=== PATIENT | male | born 1970 | race Caucasian/White ===

== ENCOUNTER 2016-05-05 15:32 | Emergency (ER) | payer OTHER ==
--- NOTE | 2016-05-05 16:47 | ED NURSING NOTES ---
Clinical Report - Nurses [facility] [address] [place] [address] 05/05/2016 15:33 Patient: IESHA BENÍTEZ TRIAGE Triage time 15:42 May 05 2016. Acuity: LEVEL 4. Chief Complaint: BOIL. 15:46 05/05/16. Alert. No acute distress. SEPSIS SCREEN: Sepsis Screen. Negative (no infection suspected/documented). ILEANA COMA SCORE: Ileana Coma Scale: 15- eyes open spontaneously (4); best verbal response- oriented x 4 (5); best motor response- obeys commands (6). --15:46 Christine Dasilva 15:46 05/05/16. BP: 126/71. HR: 72. RR: 14. O2 saturation: 98%. Temp: 98.1 F. Pain level now 07/03. --15:46 Christine Dasilva. Weight: 74.8 kg stated. Height/Length: 74 inches Per Patient. BMI: 21.2. --15:45 Christine Dasilva. Medications None. --15:43 Christien Dasilva. Medication/allergy information source: the patient. --15:46 Christine Dasilva. Allergies None. --15:43 Christine Dasilva. History Arrived by private vehicle. Historian: patient. Accompanied by friend. No primary care physician. Reported as located on the right middle finger. This started yesterday. It is described as painful. ( Pt reports he has had a small "dot" in the area for awhile that got worse yesterday. "I couldn't bend my finger."). No fever, muscle aches, headache, cough or difficulty breathing. No itching or weakness. Treatment PHARMACY HELPER: Took ibuprofen. PAST MEDICAL HX: No history of asthma, diabetes mellitus, heart disease or lung disease. Immunizations: up-to-date and has received tetanus within 5 years. SOCIAL HX: Never smoker. No alcohol use or drug use. FALL RISK ASSESSMENT: Fall risk assessment completed. No fall risk identified. NUTRITIONAL RISK ASSESSMENT: The nutritional risk assessment revealed no deficiencies. FUNCTIONAL ASSESSMENT: Functional assessment: no impairments noted. LEARNING NEEDS ASSESSMENT: The learning needs assessment revealed no barriers. SKIN INTEGRITY ASSESSMENT: Skin integrity risk assessment completed. No skin integrity risk identified. --15:46 Christine Dasilva. ADDITIONAL SURGERIES: R leg. --15:43 Christine Dasilva. Interventions ID band on patient. --15:46 Christine Dasilva. PHYSICAL ASSESSMENT 15:46 05/05/16. Ambulatory to room. GENERAL / NEURO / PSYCH: Alert. The patient does not appear to be in acute distress. Oriented X 4. HEENT: Pupils equal, round and reactive to light. RESPIRATORY: Respirations not labored. CVS: Capillary refill less than 2 seconds. Pulses within normal limits. GI / : Abdomen nontender. SKIN: Skin is intact, warm and dry. Normal skin turgor. Skin tenderness present. Swelling present. Erythema present. No drainage. --15:47 Christine Dasilva. NURSING PROGRESS NOTES 15:47 05/05/16. The plan of care for this patient has been created. Reassurance given. Two patient identifiers checked. Call light placed in reach. Bed placed in lowest position. Brakes of bed on. Patient ready for evaluation- chart flagged and ED physician and PA notified. --15:47 Christine Dasilva. DISPOSITION / DISCHARGE 16:54 05/05/16. Departure time: 16:54 May 05 2016. Condition at departure: improved. The goals identified in the patient's plan of care were met. No learning barriers present. Discharge instructions provided and reviewed with the patient. Reviewed warnings (Patient verbalized understanding of importance of taking entire course of Abx.). Reviewed medication(s) side effects, precautions, dosing and course information. Prescription(s) given to the patient (Clindamycin). Treatments reviewed. Reviewed referral to a primary care physician for followup. Patient verbalized understanding. Written instructions provided in Malagasy. The patient was discharged by the physician. He was discharged home and accompanied by parent. He left the Emergency Department ambulatory and via private vehicle. Patient driving. FALL RISK ASSESSMENT: Fall risk assessment completed. No fall risk identified. --16:54 Christine Dasilva 16:52 05/05/16. BP: 112/65. HR: 67. RR: 14. O2 saturation: 99%. Temp: 98.2 F. Pain level now: 07/03. --16:54 Christine Dasilva. Locked/Released at 05/05/2016 16:55 by Christine Dasilva,
--- NOTE | 2016-05-05 16:47 | ED CLINICAL REPORT ---
Clinical Report - Physicians/Mid Levels [facility] [address] [place] [address] 05/05/2016 15:33 Patient: IESHA BENÍTEZ Time Seen: 15:42; initial patient contact. Arrived- By private vehicle. Historian- patient. HISTORY OF PRESENT ILLNESS Chief Complaint: Injury to the right middle finger. The injury happened yesterday. (Unk). Occurred at home. Patient is experiencing mild pain. Patient denies injury to the head or neck. REVIEW OF SYSTEMS The patient has had swelling. No tingling, numbness, weakness, foreign body or skin laceration. All systems otherwise negative, except as recorded above. PAST HISTORY Negative. Problems: no known problems. Medications: None. Allergies: None. SOCIAL HISTORY Never smoker. No alcohol use or drug use. ADDITIONAL NOTES The nursing notes have been reviewed with agreement regarding the chief complaint, PMH and patient medications and allergies. PHYSICAL EXAM Vital Signs: 05/05/2016 15:46 BP: 126/71. HR: 72. RR: 14. O2 saturation: 98%. Temp: 98.1 F. Have been reviewed as normal. Skin: Single small abscess with pointing to right hand. Extremities: Right middle finger: No erythema. PROGRESS AND PROCEDURES Incision & Drainage of Abscess: Per protocol, time-out completed immediately before the procedure. The abscess is located in the right middle finger. The risks of the procedure, benefits and alternatives were explained. Skin cleansed with Shur-Clens. A small amount of pus was drained. Sample obtained for cultures. A dressing was applied. Estimated blood loss: 2 mL. ( 18 ga needle used to incise). Disposition: Discharged home in good and improved condition. Condition: good. CLINICAL IMPRESSION Single superficial abscess to the right upper extremity with incision and drainage. INSTRUCTIONS Protect wound and keep wound area clean. Change dressing twice daily. You may wash wounds briefly, then dry. Soak in warm soapy water twice daily. Prescription Medications: Clindamycin 300 mg: take 1 capsule orally every 8 hours for 7 days. No refill. Follow-up: Screening today revealed the patient's blood pressure to be in the pre-hypertensive range. The patient should follow up with a primary care provider for blood pressure management. Follow-up with: [facility], , , [address], , [place], [id number] Follow up in about three days. Call for an appointment. (Electronically signed by Jorge Foy Dr. 05/05/2016 22:05)
--- NOTE | 2016-05-05 16:47 | ED NURSING NOTES ---
Clinical Report - Nurses [facility] [address] [place] [address] 05/05/2016 15:33 Patient: IESHA BENÍTEZ TRIAGE Triage time 15:42 May 05 2016. Acuity: LEVEL 4. Chief Complaint: BOIL. 15:46 05/05/16. Alert. No acute distress. SEPSIS SCREEN: Sepsis Screen. Negative (no infection suspected/documented). ILEANA COMA SCORE: Ileana Coma Scale: 15- eyes open spontaneously (4); best verbal response- oriented x 4 (5); best motor response- obeys commands (6). --15:46 Christine Dasliva 15:46 05/05/16. BP: 126/71. HR: 72. RR: 14. O2 saturation: 98%. Temp: 98.1 F. Pain level now 07/03. --15:46 Christine Dasilva. Weight: 74.8 kg stated. Height/Length: 74 inches Per Patient. BMI: 21.2. --15:45 Christine Dasilva. Medications None. --15:43 Christine Dasilva. Medication/allergy information source: the patient. --15:46 Christine Dasilva. Allergies None. --15:43 Christine Dasilva. History Arrived by private vehicle. Historian: patient. Accompanied by friend. No primary care physician. Reported as located on the right middle finger. This started yesterday. It is described as painful. ( Pt reports he has had a small "dot" in the area for awhile that got worse yesterday. "I couldn't bend my finger."). No fever, muscle aches, headache, cough or difficulty breathing. No itching or weakness. 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 PAST MEDICAL HX: No history of asthma, diabetes mellitus, heart disease or lung disease. Immunizations: up-to-date and has received tetanus within 5 years. SOCIAL HX: Never smoker. No alcohol use or drug use. FALL RISK ASSESSMENT: Fall risk assessment completed. No fall risk identified. NUTRITIONAL RISK ASSESSMENT: The nutritional risk assessment revealed no deficiencies. FUNCTIONAL ASSESSMENT: Functional assessment: no impairments noted. LEARNING NEEDS ASSESSMENT: The learning needs assessment revealed no barriers. SKIN INTEGRITY ASSESSMENT: Skin integrity risk assessment completed. No skin integrity risk identified. --15:46 Christine Dasilva. ADDITIONAL SURGERIES: R leg. --15:43 Christine Dasilva. Interventions ID band on patient. --15:46 Christine Dasilva. PHYSICAL ASSESSMENT 15:46 05/05/16. Ambulatory to room. GENERAL / NEURO / PSYCH: Alert. The patient does not appear to be in acute distress. Oriented X 4. HEENT: Pupils equal, round and reactive to light. RESPIRATORY: Respirations not labored. CVS: Capillary refill less than 2 seconds. Pulses within normal limits. GI / : Abdomen nontender. SKIN: Skin is intact, warm and dry. Normal skin turgor. Skin tenderness present. Swelling present. Erythema present. No drainage. --15:47 Christine Dasilva. NURSING PROGRESS NOTES 15:47 05/05/16. The plan of care for this patient has been created. Reassurance given. Two patient identifiers checked. Call light placed in reach. Bed placed in lowest position. Brakes of bed on. Patient ready for evaluation- chart flagged and ED physician and PA notified. --15:47 Christine Dasilva. DISPOSITION / DISCHARGE 16:54 05/05/16. Departure time: 16:54 May 05 2016. Condition at departure: improved. The goals identified in the patient's plan of care were met. No learning barriers present. Discharge instructions provided and reviewed with the patient. Reviewed warnings (Patient verbalized understanding of importance of taking entire course of Abx.). Reviewed medication(s) side effects, precautions, dosing and course information. Prescription(s) given to the patient (Clindamycin). Treatments reviewed. Reviewed referral to a primary care physician for followup. Patient verbalized understanding. Written instructions provided in Croatian. The patient was discharged by the physician. He was discharged home and accompanied by parent. He left the Emergency Department ambulatory and via private vehicle. Patient driving. FALL RISK ASSESSMENT: Fall risk assessment completed. No fall risk identified. --16:54 Christine Dasilva 16:52 05/05/16. BP: 112/65. HR: 67. RR: 14. O2 saturation: 99%. Temp: 98.2 F. Pain level now: 07/03. --16:54 Christine Dasilva. Locked/Released at 05/05/2016 16:55 by Christine Dasilva,
--- NOTE | 2016-05-05 16:47 | ED CLINICAL REPORT ---
Clinical Report - Physicians/Mid Levels [facility] [address] [place] [address] 05/05/2016 15:33 Patient: IESHA BENÍTEZ Time Seen: 15:42; initial patient contact. Arrived- By private vehicle. Historian- patient. HISTORY OF PRESENT ILLNESS Chief Complaint: Injury to the right middle finger. The injury happened yesterday. (Unk). Occurred at home. Patient is experiencing mild pain. Patient denies injury to the head or neck. REVIEW OF SYSTEMS The patient has had swelling. No tingling, numbness, weakness, foreign body or skin laceration. All systems otherwise negative, except as recorded above. PAST HISTORY Negative. Problems: no known problems. Medications: None. Allergies: None. SOCIAL HISTORY Never smoker. No alcohol use or drug use. ADDITIONAL NOTES The nursing notes have been reviewed with agreement regarding the chief complaint, PMH and patient medications and allergies. PHYSICAL EXAM Vital Signs: 05/05/2016 15:46 BP: 126/71. HR: 72. RR: 14. O2 saturation: 98%. Temp: 98.1 F. Have been reviewed as normal. Skin: Single small abscess with pointing to right hand. Extremities: Right middle finger: No erythema. PROGRESS AND PROCEDURES Incision & Drainage of Abscess: Per protocol, time-out completed immediately before the procedure. The abscess is located in the right middle finger. The risks of the procedure, benefits and alternatives were explained. Skin cleansed with Shur-Clens. A small amount of pus was drained. Sample obtained for cultures. A dressing was applied. Estimated blood loss: 2 mL. ( 18 ga needle used to incise). Disposition: Discharged home in good and improved condition. Condition: good. CLINICAL IMPRESSION Single superficial abscess to the right upper extremity with incision and drainage. INSTRUCTIONS Protect wound and keep wound area clean. Change dressing twice daily. You may wash wounds briefly, then dry. Soak in warm soapy water twice daily. Prescription Medications: Clindamycin 300 mg: take 1 capsule orally every 8 hours for 7 days. No refill. Follow-up: Screening today revealed the patient's blood pressure to be in the pre-hypertensive range. The patient should follow up with a primary care provider for blood pressure management. Follow-up with: [facility], , , [address], , [place], [id number] Follow up in about three days. Call for an appointment. (Electronically signed by Jorge Foy Dr. 05/05/2016 22:05)
--- NOTE | 2016-05-05 22:05 | ED MAR SUMMARY ---
..... Medication Administration Record [facility] [address] [place] [id number] Patient: IESHA BENÍTEZ Visit ID: [id number] 46y, M Weight: 74.8 kg Height/Length: 74 in BMI: 21.2 ALLERGIES: None
--- NOTE | 2016-05-05 22:05 | ED MAR SUMMARY ---
..... Medication Administration Record [facility] [address] [place] [id number] Patient: IEHSA BENÍTEZ Visit ID: [id number] 46y, M Weight: 74.8 kg Height/Length: 74 in BMI: 21.2 ALLERGIES: None
--- NOTE | 2016-05-05 22:05 | ED MED RECONCILIATION SUMMARY ---
Patient: IESHA BENÍTEZ Medication Reconciliation Report [facility] VisitID: [id number] [address] [place] [address] 46y, M Registration Date/Time: 05/05/2016 Weight: 74.8 kg Height/Length: 74 in. BMI: 21.2 ALLERGIES: None The patient's Home Medications are listed below: NONE. The source(s) of the original Home Medication information: patient The following Medications were given to the patient in the Emergency Department: None. The following Medications were prescribed to the patient: Clindamycin 300 mg: take 1 capsule orally every 8 hours for 7 days. No refill. -- Jorge Foy Dr.
--- NOTE | 2016-05-05 22:05 | ED DISCHARGE INSTRUCTIONS ---
Patient: IESHA BENÍTEZ General Instructions [facility] VisitID: [id number] [address] [place] [address] 46y, M Registration Date/Time: 05/05/2016 Single superficial abscess to the right upper extremity with incision and drainage. INSTRUCTIONS Protect wound and keep wound area clean. Change dressing twice daily. You may wash wounds briefly, then dry. Soak in warm soapy water twice daily. Prescription Medications: Clindamycin 300 mg: take 1 capsule orally every 8 hours for 7 days. No refill. Follow-up: Screening today revealed the patient's blood pressure to be in the pre-hypertensive range. The patient should follow up with a primary care provider for blood pressure management. Follow-up with: [facility], , , [address], , [place], [address] Follow up in about three days. Call for an appointment. ADDITIONAL INFORMATION Abscess [Incision & Drainage] An abscess (sometimes called a boil) occurs when bacteria get trapped under the skin and begin to grow. Pus forms inside the abscess as the body responds to the bacteria. An abscess can occur with an insect bite, ingrown hair, blocked oil gland, pimple, cyst, or puncture wound. Treatment of your abscess has required an incision to drain the pus. If the abscess pocket was large, a gauze packing may have been inserted. This will need to be removed and possibly replaced on your next visit. Antibiotics are not required in the treatment of a simple abscess, unless the infection is spreading into the skin around the wound (known as cellulitis). Healing of the wound will take about one to two weeks depending on the size of the abscess. Healthy tissue will grow from the bottom and sides of the opening until it seals over. Home Care: The wound may drain for the first two days. Cover the wound with a clean dry dressing. If the dressing becomes soaked with blood or pus, change it. If a gauze packing was placed inside the abscess cavity, you may be advised to remove it yourself. You may do this in the shower. Once the packing is removed, you should wash the area in the shower or bath 3 to 4 times a day, until the skin opening has closed. If you were prescribed antibiotics, take them as directed until they are all gone. You may use acetaminophen (Tylenol) or ibuprofen (Motrin, Advil) to control pain, unless another pain medicine was prescribed. [ NOTE: If you have liver disease or ever had a stomach ulcer, talk with your doctor before using these medicines.] Follow Up with your doctor as advised by our staff. If a gauze packing was inserted in your wound, it should be removed in 1-2 days. Check your wound every day for the signs of worsening infection listed below. Get Prompt Medical Attention if any of the following occur: Increasing redness or swelling Red streaks in the skin leading away from the wound Increasing local pain or swelling Continued pus draining from the wound two days after treatment Fever of 100.4F (38C) or higher, or as directed by your healthcare provider Bandage Change If the bandage becomes wet or dirty, replace it. Otherwise, leave it in place for the first 24 hours. Then once a day: After removing the bandage, wash the area with soap and water. Use a wet cotton swab to loosen and remove any blood or crust that forms on the wound. After cleaning, apply a thin layer of antibiotic ointment or cream. Reapply the bandage. You may shower as usual after the first 24 hours. If the bandage is on an arm or leg, cover it with a plastic bag rubber banded at both ends before showering. No tub baths or swimming until the bandage is removed and the wound healed (at least 7 days). Clindamycin Hydrochloride Oral capsule What is this medicine? CLINDAMYCIN (KLIN da MYE sin) is a lincosamide antibiotic. It is used to treat certain kinds of bacterial infections. It will not work for colds, flu, or other viral infections. How should I use this medicine? Take this medicine by mouth with a full glass of water. Follow the directions on the prescription label. You can take this medicine with food or on an empty stomach. If the medicine upsets your stomach, take it with food. Take your medicine at regular intervals. Do not take your medicine more often than directed. Take all of your medicine as directed even if you think your are better. Do not skip doses or stop your medicine early. Talk to your dependency case manager regarding the use of this medicine in children. Special care may be needed. What side effects may I notice from receiving this medicine? Side effects that you should report to your doctor or health medical care evaluation specialist as soon as possible: allergic reactions like skin rash, itching or hives, swelling of the face, lips, or tongue dark urine pain on swallowing redness, blistering, peeling or loosening of the skin, including inside the mouth unusual bleeding or bruising unusually weak or tired yellowing of eyes or skin Side effects that usually do not require medical attention (report to your doctor or health medical care evaluation specialist if they continue or are bothersome): diarrhea itching in the rectal or genital area joint pain nausea, vomiting stomach pain What may interact with this medicine? chloramphenicol erythromycin kaolin products What if I miss a dose? If you miss a dose, take it as soon as you can. If it is almost time for your next dose, take only that dose. Do not take double or extra doses. Where should I keep my medicine? Keep out of the reach of children. Store at room temperature between 20 and 25 degrees C (68 and 77 degrees F). Throw away any unused medicine after the expiration date. What should I tell my health care provider before I take this medicine? They need to know if you have any of these conditions: kidney disease liver disease stomach problems like colitis an unusual or allergic reaction to clindamycin, lincomycin, or other medicines, foods, dyes like tartrazine or preservatives or trying to get breast-feeding What should I watch for while using this medicine? Tell your doctor or healthcare professional if your symptoms do not start to get better or if they get worse. Do not treat diarrhea with over the counter products. Contact your doctor if you have diarrhea that lasts more than 2 days or if it is severe and watery. You have been given the following additional information: Abscess, Incision And Drainage Dressing Change Clindamycin Hydrochloride Oral capsule (Electronically signed by Jorge Foy Dr. 05/05/2016 22:05)
--- NOTE | 2016-05-05 22:05 | ED DISCHARGE INSTRUCTIONS ---
Patient: IESHA BENÍTEZ General Instructions [facility] VisitID: [id number] [address] [place] [address] 46y, M Registration Date/Time: 05/05/2016 Single superficial abscess to the right upper extremity with incision and drainage. INSTRUCTIONS Protect wound and keep wound area clean. Change dressing twice daily. You may wash wounds briefly, then dry. Soak in warm soapy water twice daily. Prescription Medications: Clindamycin 300 mg: take 1 capsule orally every 8 hours for 7 days. No refill. Follow-up: Screening today revealed the patient's blood pressure to be in the pre-hypertensive range. The patient should follow up with a primary care provider for blood pressure management. Follow-up with: [facility], , , [address], , [place], [id number] Follow up in about three days. Call for an appointment. ADDITIONAL INFORMATION Abscess [Incision & Drainage] An abscess (sometimes called a boil) occurs when bacteria get trapped under the skin and begin to grow. Pus forms inside the abscess as the body responds to the bacteria. An abscess can occur with an insect bite, ingrown hair, blocked oil gland, pimple, cyst, or puncture wound. Treatment of your abscess has required an incision to drain the pus. If the abscess pocket was large, a gauze packing may have been inserted. This will need to be removed and possibly replaced on your next visit. Antibiotics are not required in the treatment of a simple abscess, unless the infection is spreading into the skin around the wound (known as cellulitis). Healing of the wound will take about one to two weeks depending on the size of the abscess. Healthy tissue will grow from the bottom and sides of the opening until it seals over. Home Care: The wound may drain for the first two days. Cover the wound with a clean dry dressing. If the dressing becomes soaked with blood or pus, change it. If a gauze packing was placed inside the abscess cavity, you may be advised to remove it yourself. You may do this in the shower. Once the packing is removed, you should wash the area in the shower or bath 3 to 4 times a day, until the skin opening has closed. If you were prescribed antibiotics, take them as directed until they are all gone. You may use acetaminophen (Tylenol) or ibuprofen (Motrin, Advil) to control pain, unless another pain medicine was prescribed. [ NOTE: If you have liver disease or ever had a stomach ulcer, talk with your doctor before using these medicines.] Follow Up with your doctor as advised by our staff. If a gauze packing was inserted in your wound, it should be removed in 1-2 days. Check your wound every day for the signs of worsening infection listed below. Get Prompt Medical Attention if any of the following occur: Increasing redness or swelling Red streaks in the skin leading away from the wound Increasing local pain or swelling Continued pus draining from the wound two days after treatment Fever of 100.4F (38C) or higher, or as directed by your healthcare provider Bandage Change If the bandage becomes wet or dirty, replace it. Otherwise, leave it in place for the first 24 hours. Then once a day: After removing the bandage, wash the area with soap and water. Use a wet cotton swab to loosen and remove any blood or crust that forms on the wound. After cleaning, apply a thin layer of antibiotic ointment or cream. Reapply the bandage. You may shower as usual after the first 24 hours. If the bandage is on an arm or leg, cover it with a plastic bag rubber banded at both ends before showering. No tub baths or swimming until the bandage is removed and the wound healed (at least 7 days). Clindamycin Hydrochloride Oral capsule What is this medicine? CLINDAMYCIN (KLIN da MYE sin) is a lincosamide antibiotic. It is used to treat certain kinds of bacterial infections. It will not work for colds, flu, or other viral infections. How should I use this medicine? Take this medicine by mouth with a full glass of water. Follow the directions on the prescription label. You can take this medicine with food or on an empty stomach. If the medicine upsets your stomach, take it with food. Take your medicine at regular intervals. Do not take your medicine more often than directed. Take all of your medicine as directed even if you think your are better. Do not skip doses or stop your medicine early. Talk to your attendance officer regarding the use of this medicine in children. Special care may be needed. What side effects may I notice from receiving this medicine? Side effects that you should report to your doctor or health daycare provider as soon as possible: allergic reactions like skin rash, itching or hives, swelling of the face, lips, or tongue dark urine pain on swallowing redness, blistering, peeling or loosening of the skin, including inside the mouth unusual bleeding or bruising unusually weak or tired yellowing of eyes or skin Side effects that usually do not require medical attention (report to your doctor or health daycare provider if they continue or are bothersome): diarrhea itching in the rectal or genital area joint pain nausea, vomiting stomach pain What may interact with this medicine? chloramphenicol erythromycin kaolin products What if I miss a dose? If you miss a dose, take it as soon as you can. If it is almost time for your next dose, take only that dose. Do not take double or extra doses. Where should I keep my medicine? Keep out of the reach of children. Store at room temperature between 20 and 25 degrees C (68 and 77 degrees F). Throw away any unused medicine after the expiration date. What should I tell my health care provider before I take this medicine? They need to know if you have any of these conditions: kidney disease liver disease stomach problems like colitis an unusual or allergic reaction to clindamycin, lincomycin, or other medicines, foods, dyes like tartrazine or preservatives or trying to get breast-feeding What should I watch for while using this medicine? Tell your doctor or healthcare professional if your symptoms do not start to get better or if they get worse. Do not treat diarrhea with over the counter products. Contact your doctor if you have diarrhea that lasts more than 2 days or if it is severe and watery. You have been given the following additional information: Abscess, Incision And Drainage Dressing Change Clindamycin Hydrochloride Oral capsule (Electronically signed by Jorge Foy Dr. 05/05/2016 22:05)
--- NOTE | 2016-05-05 22:05 | ED MED RECONCILIATION SUMMARY ---
Patient: IESHA BENÍTEZ Medication Reconciliation Report [facility] VisitID: [id number] [address] [place] [address] 46y, M Registration Date/Time: 05/05/2016 Weight: 74.8 kg Height/Length: 74 in. BMI: 21.2 ALLERGIES: None The patient's Home Medications are listed below: NONE. The source(s) of the original Home Medication information: patient The following Medications were given to the patient in the Emergency Department: None. The following Medications were prescribed to the patient: Clindamycin 300 mg: take 1 capsule orally every 8 hours for 7 days. No refill. -- Jorge Foy Dr.
== END 2016-05-05 16:54 | disposition home or self-care (01) ==
LOC: ED SRH 15:32
DX: L02.511 Cutaneous abscess of right hand (principal); X58.XXXA Exposure to other specified factors, initial encounter; Y99.9 Unspecified external cause status; Y93.9 Activity, unspecified; Y92.9 Unspecified place or not applicable